=== PATIENT | female | born 1955 | race Caucasian/White ===

== ENCOUNTER 2021-02-25 19:21 | Emergency (ER) | payer BC ==
[~2021-02-25] VITALS: Ht 160 cm; Wt 62.1 kg
--- NOTE | 2021-02-25 20:13 | NUR ---
PATIENT OUT OF UNIT FOR X RAY AND CT SCAN VIA [facility].
[2021-02-25] MEDS ORDERED: TDAP DIPH,PERTUSS,TET VAC/PF 0.5 ML DISP.SYRIN IM ONE ×2 (20:15→20:26)
[2021-02-25] MEDS ORDERED: LIDOCAINE 1%-EPI 1:100,000 20 ML VIAL IJ ONE (20:15)
[2021-02-25] MEDS ORDERED: IBUPROFEN 600 MG TABLET PO ONE (20:15)
[2021-02-25] MEDS ORDERED: SODIUM BICARBONATE 4.2 % (NEUT) 5 ML VIAL TP ONE (20:15)
[2021-02-25] MEDS ORDERED: CEphaleXIN 500 MG CAPSULE PO ONE (20:15)
[2021-02-25] MEDS ORDERED: CEphaleXIN 500 MG CAPSULE ONE (20:25)
[2021-02-25] MEDS ORDERED: IBUPROFEN 600 MG TABLET ONE (20:25)
[2021-02-25] MEDS ORDERED: SODIUM BICARBONATE 4.2 % (NEUT) 5 ML VIAL ONE (20:26)
[2021-02-25] MEDS ORDERED: LIDOCAINE 1%-EPI 1:100,000 20 ML VIAL ONE (20:26)
--- NOTE | 2021-02-25 20:30 | NUR ---
PATIENT BACK FROM X RAY AND CT SCAN
[2021-02-25] MEDS ORDERED: NEOMY/BACITRA/POLYMYXIN B OINT UD PACKET TP ONE ×2 (21:00→21:05)
[2021-02-25] MEDS ORDERED: NEOM28OI TP (21:00)
[2021-02-25] MEDS ORDERED: HYDR-4209 PO (21:00)
--- NOTE | 2021-02-25 21:20 | NUR ---
Patient discharged to home in stable condition. Written and verbal after care instructions given. Patient verbalizes understanding of instructions. Stressed follow up or return to ER for worsening s/s.
[2021-02-25 21:21] VITALS: BP 120/50
== END 2021-02-25 21:22 | disposition home or self-care (01) ==
LOC: ER 19:24
DX: S01.81XA Laceration without foreign body of other part of head, initial encounter (principal); W01.0XXA Fall on same level from slipping, tripping and stumbling without subsequent striking against object, initial encounter; Y92.481 Parking lot as the place of occurrence of the external cause; S52.502A Unspecified fracture of the lower end of left radius, initial encounter for closed fracture; S52.602A Unspecified fracture of lower end of left ulna, initial encounter for closed fracture
CPT/HCPCS: 12011; 29125; 70450; 73090; 73110; 90471; 90715; 99284; J3490 ×2; A4663